=== PATIENT | male | born 1990 | race Two or more races ===

== ENCOUNTER 2021-12-01 13:50 | Outpatient (CLI) | payer BC ==
[~2021-12-01 13:50] MED LIST: Magnevist 469MG/ML 20 ML VIAL ONE
== END 2021-12-01 13:51 | disposition home or self-care (01) ==
LOC: CSHMRI 13:50
PROVIDERS: ATTEND Family Medicine
DX: R51.9 Headache, unspecified (principal); Z82.3 Family history of stroke; Z82.49 Family history of ischemic heart disease and other diseases of the circulatory system
CPT/HCPCS: 70553